=== PATIENT | female | born 1960 | race Native Hawaiian/Other Pacific Islander ===

== ENCOUNTER 2021-07-09 18:26 | Outpatient (CLI) | payer OTHER | END 2021-07-09 19:07 | disposition home or self-care (01) | LOC: RAD 18:26 | PROVIDERS: ATTEND General Practice | DX: R05.9 Cough, unspecified (principal); W19.XXXA Unspecified fall, initial encounter; M79.672 Pain in left foot ==

== ENCOUNTER 2021-10-08 15:05 | Outpatient (CLI) | payer OTHER | END 2021-10-08 19:01 | disposition home or self-care (01) | LOC: CT 15:05 | PROVIDERS: ATTEND Physician Assistant | DX: M43.16 Spondylolisthesis, lumbar region (principal) ==

== ENCOUNTER 2021-10-22 17:19 | Outpatient (CLI) | payer OTHER ==
[2021-10-22 17:52] LABS: PLATELET COUNT 132 K/uL (152-353)
[2021-10-22 18:11] LABS: POTASSIUM 3.9 mmol/L (3.6-5.2)
== END 2021-10-22 20:40 | disposition home or self-care (01) ==
LOC: LABW 17:19
PROVIDERS: ATTEND Internal Medicine Cardiovascular Disease
DX: I10 Essential (primary) hypertension (principal); I25.10 Atherosclerotic heart disease of native coronary artery without angina pectoris
CPT/HCPCS: 36415; 80048; 85027

== ENCOUNTER 2022-06-05 13:54 | Outpatient (CLI) | payer OTHER | END 2022-06-05 20:44 | disposition home or self-care (01) | LOC: CT 13:54 | PROVIDERS: ATTEND General Practice | DX: Z09 Encounter for follow-up examination after completed treatment for conditions other than malignant neoplasm (principal); Z87.891 Personal history of nicotine dependence; B99.9 Unspecified infectious disease ==